=== PATIENT | female | born 1985 | race Caucasian/White ===

== ENCOUNTER 2018-08-19 07:51 | Emergency (ER) | payer BC, OTHER, SELFPAY ==
[~2018-08-19] VITALS: Ht 162.6 cm; Wt 73.7 kg
--- NOTE | 2018-08-19 08:25 | NUR ---
CONTACT WITH PT, 33 YR OLD FEMALE HERE WITH C/O "I WAS SICK OVER THE WEEK END, SEEMED TO GET BETTER, THEN YESTERDAY WAS REALLY TIRED, LAST NIGHT I WOKE UP WITH ITCHING, HANDS REALLY SWOLLEN AND THROAT REALLY SWOLLEN, FEELS LIKE I TRIED TO SWALLOW A PILL AND IT DIDNT GO DOWN" TOOK NIKA VALLES NIGHT TIME AT 2000, AND BENADRYL APPROX 0100. "EVEN WITH THE COMBINATION OF THE 2 I STILL COULDNT SLEEP" PT SITTING UP ON GURNEY, NO ACUTE DISTRESS NTOED.
--- NOTE | 2018-08-19 08:43 | NUR ---
PT RETURN TO ROOM FROM RADIOLOGY. PT ABLE TO PROVIDE URINE SPECIMAN. PT UPDATED ON POC. NO NEEDS EXPRESSED AT THIS TIME.
[2018-08-19 08:45] LABS: BASOPHILS % (AUTO) 0 % (0-1); EOSINOPHILS # (AUTO) 0.14 x10^3/uL (0-0.4); EOSINOPHILS % (AUTO) 2 % (1-7); LYMPHOCYTES # (AUTO) 1.19 x10^3/uL (1-3.4); LYMPHOCYTES % (AUTO) 14 % (22-44); MD NO; MEAN CORPUSCULAR HEMOGLOBIN 28.8 pg (27.0-34.8); MEAN CORPUSCULAR VOLUME 87.3 fL (80-100); MEAN PLATELET VOLUME 7.6 fL (7.4-10.4); MONOCYTES % (AUTO) 3 % (2-9); NEUTROPHILS % (AUTO) 82 % (42-75); PLATELET COUNT 279 x10^3/uL (130-400); RED BLOOD COUNT 4.58 x10^6/uL (3.82-5.3); RED CELL DISTRIBUTION WIDTH 13.9 % (9.6-15.2)
[2018-08-19 08:49] LABS: MICROSCOPIC NOT IND
[2018-08-19 08:51] LABS: CULTURE INDICATED? NO
[2018-08-19 08:53] LABS: ANION GAP 4 mmol/L (5-15); CALCIUM 8.5 mg/dL (8.5-10.1); CHLORIDE 109 mmol/L (98-107); CREATININE 0.72 mg/dL (0.55-1.02)
[2018-08-19 09:33] VITALS: BP 127/88
--- NOTE | 2018-08-19 09:33 | NUR ---
PT SITTING UP ON GURNEY, NO ACUTE DISTRESS NOTED. PT AWARE OF WAITING FOR MD RECHECK. NO NEEDS EXPRESSED AT THIS TIME.
[2018-08-19] MEDS ORDERED: DEXAMETHASONE 4 MG TABLET PO ONE (10:30)
[2018-08-19] MEDS ORDERED: DEXAMETHASONE 4 MG TABLET ONE (10:40)
--- NOTE | 2018-08-19 10:54 | NUR ---
PT DRESSED. NO ACUTE DISTRESS NOTED. NO IV TO DC. REVIEWED DC INSTRUCTIONS WITH PT. UNDERSTANDING VERBALIZED. PT LEFT AMB, GAIT STEADY WITH MOTHER.
== END 2018-08-19 10:57 | disposition home or self-care (01) ==
LOC: ED 09:14
DX: B34.9 Viral infection, unspecified (principal); I10 Essential (primary) hypertension; Z88.5 Allergy status to narcotic agent
CPT/HCPCS: 36415; 71046; 80048; 81003; 84703; 85025; 87081; 87880; 99284

== ENCOUNTER 2020-12-18 14:36 | Emergency (ER) | payer BC ==
[~2020-12-18] VITALS: Ht 165.1 cm; Wt 83.7 kg
[2020-12-18] MEDS ORDERED: THIAMINE 100MG TABLET PO ONE (15:00)
[2020-12-18] MEDS ORDERED: LORazepam 1MG TABLET PO ONE (15:00)
[2020-12-18] MEDS ORDERED: THIAMINE 100MG TABLET ONE (17:39)
[2020-12-18] MEDS ORDERED: LORazepam 1MG TABLET ONE (17:40)
--- NOTE | 2020-12-18 17:49 | NUR ---
PT back from triage with chief complaint of etoh withdrawl. PT reports drinking past 10 days.
[2020-12-18 18:23] LABS: BASOPHILS % (AUTO) 0 % (0-1); EOSINOPHILS % (AUTO) 0 % (1-7); LYMPHOCYTES % (AUTO) 14 % (22-44); MEAN CORPUSCULAR HEMOGLOBIN 30.2 pg (27.0-34.8); MEAN CORPUSCULAR HGB CONC 33.8 g/dL (32.4-35.8); MEAN PLATELET VOLUME 6.7 fL (7.4-10.4); MONOCYTES % (AUTO) 5 % (2-9); NEUTROPHILS % (AUTO) 81 % (42-75); PLATELET COUNT 573 x10^3/uL (130-400); RED BLOOD COUNT 4.83 x10^6/uL (3.82-5.3)
[2020-12-18 18:35] LABS: ALANINE AMINOTRANSFERASE 76 U/L (12-78); ALBUMIN 3.8 g/dL (3.4-5.0); ANION GAP 15 mmol/L (5-15); CALCIUM 8.3 mg/dL (8.5-10.1); CHLORIDE 102 mmol/L (98-107); CREATININE 0.75 mg/dL (0.55-1.02)
--- NOTE | 2020-12-18 18:36 | NUR ---
PT resting in bed, call ight in reach.
[2020-12-18 18:39] LABS: ALKALINE PHOSPHATASE 90 U/L (45-117); BILIRUBIN,TOTAL 0.7 mg/dL (0.2-1.0); TOTAL PROTEIN 7.7 g/dL (6.4-8.2)
[2020-12-18 18:47] VITALS: BP 151/101
--- NOTE | 2020-12-18 18:47 | NUR ---
Report to Sabino SUÁREZ
[2020-12-18] MEDS ORDERED: ONDANSETRON ODT 4 MG ONE (18:52)
[2020-12-18] MEDS ORDERED: ONDANSETRON ODT 4 MG PO ONE (19:00)
== END 2020-12-18 19:14 | disposition home or self-care (01) ==
LOC: ED 19:05
DX: F10.129 Alcohol abuse with intoxication, unspecified (principal); I10 Essential (primary) hypertension; Y90.9 Presence of alcohol in blood, level not specified
CPT/HCPCS: 36415; 80053; 80320; 83690; 84703; 85025; 99284; Q0162; G0480